=== PATIENT | male | born 1990 | race Caucasian/White ===

== ENCOUNTER 2021-05-18 13:47 | Emergency (ER) | payer SELFPAY ==
[2021-05-18 14:25] VITALS: BP 145/79; PULSE 78; RESP 16; TEMP 36.8; O2SAT 97; BMI 21.2
[2021-05-18 14:32] VITALS: BP 145/79; PULSE 78; RESP 16; TEMP 36.8; O2SAT 97
--- NOTE | 2021-05-18 14:50 | ED_ITS ---
HPI - Fall General: Chief Complaint: Fall Stated Complaint: left leg pain Time Seen by Provider: 05/18/21 14:32 Course Vital Signs: Vital signs: Vital Signs Temperature 98.2 F 05/18/21 14:32 Pulse Rate 78 05/18/21 14:32 Respiratory Rate 16 05/18/21 14:32 Blood Pressure 145/79 05/18/21 14:32 Pulse Oximetry 97 05/18/21 14:32 Discharge Plan Discharge Condition: Stable Coding Level of Care Code ED Director Educational [employer] for Tigre Borrero
--- NOTE | 2021-05-18 14:50 | XRR_ITS ---
PROCEDURE INFORMATION: Exam: XR Left Femur Exam date and time: 05/18/2021 2:59 PM Age: 30 years old Clinical indication: Injury or trauma; Blunt trauma; Thigh or upper leg; Left; Prior surgery; Surgery date: 6+ months; Surgery type: Im claude; Patient HX: Orif FX 10mos ago, C/O pain after stepping wrong and fall; Additional info: Trauma; Previous fx/hardware TECHNIQUE: Imaging protocol: XR Left femur. Views: 2 views. COMPARISON: CT abdomen pelvis w con* [id number] 03/15/2017 12:14 PM FINDINGS: Bones/joints: Femoral orthopedic claude seen bridging a mid to distal diaphyseal fracture with partial bony fusion at the fracture site. Soft tissues: Unremarkable. XR/XR femur LT min 2V* [id number] IMPRESSION: Femoral orthopedic claude seen bridging a mid to distal diaphyseal fracture with partial bony fusion at the fracture site.
--- NOTE | 2021-05-18 15:22 | W.ED.LOWEXIN ---
HPI - Extremity Injury (Lower) General: Chief Complaint: Fall Stated Complaint: left leg pain Time Seen by Provider: 05/18/21 14:32 Source: patient Mode of arrival: ambulatory Limitations: no limitations History of Present Illness: Patient is a 30-year-old male who presents to ED today for evaluation of left thigh/femur pain/injury that occurred earlier today when he was walking through a field and he tripped/stumbled and believes he may have re-injured the left femur. Patient states last year he had an injury/femoral fracture requiring surgery and femoral claude placement. Patient is concerned he may have injured his hardware. He is still ambulatory on the extremity. He denies any other injuries or concerns at this time. MD complaint: thigh injury Onset (ago): hour(s) Injury: Left: thigh Place: street/outdoors Relieving factors: immobilization Exacerbating factors: weight bearing Associated symptoms: Reports no associated symptoms Other symptoms: none Review of Systems Musc: Reports: extremity pain (L thigh); Denies: neck pain, back pain, joint pain, joint swelling, joint redness or joint warmth Neuro: Denies: numbness in extremities or sensory changes Physical Exam Const: COMMON NORMALS: no acute distress, average body habitus, patient oriented x3, no limitations, healthy appearing, alert and well nourished Extremity: COMMON NORMALS: full ROM, capillary refill normal, no joint enlargement, no clubbing, cyanosis or edema, no calf tenderness and no pedal edema GENERAL: Yes normal exam except as noted LEFT LOWER EXTREMITY: Yes upper leg (TTP L distal thigh w/o swelling or deformity; baseline ROM of hip/knee) Left upper leg: Yes neurovascular exam (normal) Neuro: COMMON NORMALS: patient oriented x3, moves all extremities, no focal motor deficits, no sensory deficits noted and gait normal SENSORIUM/ORIENTATION: Yes alert Skin: COMMON NORMALS: no rashes or lesions noted GENERAL SKIN EXAM: no rashes or lesions noted TRAUMA: no lacerations or abrasions Course Vital Signs: Vital signs: Vital Signs Temperature 98.2 F 05/18/21 14:32 Pulse Rate 78 05/18/21 14:32 Respiratory Rate 16 05/18/21 14:32 Blood Pressure 145/79 05/18/21 14:32 Pulse Oximetry 97 05/18/21 14:32 MDM - Extremity Injury (Lower) Medical Decision Making Recommends he follow up with PCP. He is in the [employer] so he may also follow up with medical provider for his particular unit as well. Lab Data Radiology Impressions Femur X-Ray 05/18/21 14:50 IMPRESSION: Femoral orthopedic claude seen bridging a mid to distal diaphyseal fracture with partial bony fusion at the fracture site. Discharge Plan Discharge Patient Disposition: Home Clinical Impression: Injury of left thigh Qualifiers: Encounter type: initial encounter Qualified Code(s): S79.922A - Unspecified injury of left thigh, initial encounter Condition: Stable Discharge Orders: Discharge ED (Routine); Ordered 05/18/21 Ordered By: Jenn Junior Coding Level of Care Code ED Rn Document Improvement for Tigre Borrero
[2021-05-18 15:33] VITALS: BP 145/79; PULSE 78; RESP 16; TEMP 36.8; O2SAT 99
== END 2021-05-18 15:34 | disposition home or self-care (01) ==
PROVIDERS: Emergency Provider Physician Assistant
DX: S79.822A Other specified injuries of left thigh, initial encounter (principal); W18.30XA Fall on same level, unspecified, initial encounter; Z96.7 Presence of other bone and tendon implants
CPT/HCPCS: 73552; 99282